=== PATIENT | female | born 1945 | race Caucasian/White ===

== ENCOUNTER 2021-04-22 15:47 | Inpatient (IN) | payer MEDICARE ==
[~2021-04-22] VITALS: Ht 162.6 cm; Wt 68.7 kg
[2021-04-22 19:10] LABS: BASOPHIL 0.2 % (0-2); EOSINOPHIL 0 % (0-7); HCT 40.7 % (37.0-47.0); HGB 13.8 g/dl (12.5-16.0); LYMPHOCYTE 18.2 % (15-48); MCH 28.7 pg (25.0-31.0); MCHC 33.9 g/dL (32.0-36.0); MCV 84.6 fL (78.0-100.0); MONOCYTE 7.1 % (0-12); NEUTROPHIL 73.7 % (41-80); NRBC 0; PLT 176 K/uL (150-400); RBC 4.81 M/uL (4.20-5.40); RDW 13.2 % (11.5-14.0); WBC 8.9 K/uL (4.0-10.5)
[2021-04-22 19:27] LABS: BUN/CREAT RATIO (CALC) 16.4 RATIO; CREATININE 1.77 mg/dL (0.51-0.95); POTASSIUM 4.3 mmol/L (3.5-5.1)
[2021-04-22] MEDS ORDERED: ALPHAGAN 020 DROPS/M OS (23:31)
[2021-04-22] MEDS ORDERED: ATROPINE SULFATE2 ML EYELF (23:31)
[2021-04-22] MEDS ORDERED: DORZOLAMIDE-TIM10 ML OS (23:32)
[2021-04-22] MEDS ORDERED: LASIX20 MG PO (23:33)
[2021-04-22] MEDS ORDERED: PRINIVIL20 MG PO (23:34)
[2021-04-22] MEDS ORDERED: MELOXICAM7.5 MG PO (23:35)
[2021-04-22] MEDS ORDERED: METFORMIN HCL500 MG PO (23:36)
[2021-04-22] MEDS ORDERED: TOPROL XL 25MG25 MG PO (23:36)
[2021-04-22] MEDS ORDERED: PREDNISOLO15 MG/5 ML OS (23:37)
[2021-04-22] MEDS ORDERED: RESTASIS1 EACH OS (23:38)
[2021-04-23 06:41] LABS: BASOPHIL 0.2 % (0-2); EOSINOPHIL 0 % (0-7); HCT 39.2 % (37.0-47.0); LYMPHOCYTE 13.1 % (15-48); MCH 28.3 pg (25.0-31.0); MCHC 33.2 g/dL (32.0-36.0); MCV 85.2 fL (78.0-100.0); MONOCYTE 2.1 % (0-12); NEUTROPHIL 83.2 % (41-80); NRBC 0; PLT 172 K/uL (150-400); RDW 13.2 % (11.5-14.0)
[2021-04-23 07:03] LABS: WBC 5.7 K/uL (4.0-10.5)
[2021-04-23 07:06] LABS: BUN 28 mg/dL (7-18); BUN/CREAT RATIO (CALC) 24.1 RATIO; C-REACTIVE PROTEIN >18.00 mg/dL (<=0.90); CHLORIDE 98 mmol/L (98-107); CO2 (BICARBONATE) 25 mmol/L (21-32); CREATININE 1.16 mg/dL (0.51-0.95); GLUCOSE 244 mg/dL (74-106); LDH 255 U/L (81-234); POTASSIUM 4.6 mmol/L (3.5-5.1)
[2021-04-24 06:15] LABS: BASOPHIL 0.2 % (0-2); EOSINOPHIL 0 % (0-7); HCT 36.4 % (37.0-47.0); HGB 12.4 g/dl (12.5-16.0); LYMPHOCYTE 13.8 % (15-48); MCH 28.8 pg (25.0-31.0); MCHC 34.1 g/dL (32.0-36.0); MCV 84.5 fL (78.0-100.0); MONOCYTE 7.1 % (0-12); MPV 11.4 fL (6.0-9.5); NEUTROPHIL 77.6 % (41-80); NRBC 0; PLT 190 K/uL (150-400); RBC 4.31 M/uL (4.20-5.40); RDW 13.2 % (11.5-14.0); WBC 9.2 K/uL (4.0-10.5)
[2021-04-24 07:15] LABS: CREATININE 1.01 mg/dL (0.51-0.95); POTASSIUM 4.5 mmol/L (3.5-5.1)
--- NOTE | 2021-04-24 16:35 | NUR ---
04/24 Ms. Deleon lives at home with her 19 y/o grandson. She does not drive. Her daughtre runs errands and provides transportation. [email or web address] Deleon does not use any DME. She will likely need 02 at discharge. Ms. Deleon chose [employer].
[2021-04-26] MEDS ORDERED: DECADRON6 MG PO (14:03)
[2021-04-26] MEDS ORDERED: VENTOLIN HFA IN18 GM INH (14:03)
== END 2021-04-26 17:09 | disposition home or self-care (01) | DRG 177 ==
LOC: FER 15:47 → FMS 21:36
PROVIDERS: Internal Medicine; Nurse Practitioner; ADMIT Internal Medicine
PROC: 8E0ZXY6 Isolation (ICD-10-PCS; 2021-04-22)
PROC: XW033E5 Introduction of Remdesivir Anti-infective into Peripheral Vein, Percutaneous Approach, New Technology Group 5 (ICD-10-PCS; principal; 2021-04-23)
DX: U07.1 COVID-19 (principal); J12.82 Pneumonia due to coronavirus disease 2019; J96.01 Acute respiratory failure with hypoxia; J18.9 Pneumonia, unspecified organism; J44.1 Chronic obstructive pulmonary disease with (acute) exacerbation; J44.0 Chronic obstructive pulmonary disease with (acute) lower respiratory infection; N17.9 Acute kidney failure, unspecified; Z66 Do not resuscitate; E86.0 Dehydration; I10 Essential (primary) hypertension; E11.9 Type 2 diabetes mellitus without complications; E78.5 Hyperlipidemia, unspecified; H40.9 Unspecified glaucoma; H54.62 Unqualified visual loss, left eye, normal vision right eye; F17.200 Nicotine dependence, unspecified, uncomplicated; Z99.81 Dependence on supplemental oxygen; Z82.49 Family history of ischemic heart disease and other diseases of the circulatory system; Z98.41 Cataract extraction status, right eye; Z90.710 Acquired absence of both cervix and uterus; Z79.84 Long term (current) use of oral hypoglycemic drugs; Z79.899 Other long term (current) drug therapy
CPT/HCPCS: 36415; 36600; 71045; 80048; 82728; 82803; 83615; 84145; 85025; 86140; 87040; 94010; 94640; 94760; 94762; 97116; 97162; 97166; 97530-GP; 97535; C9399; J0456; J1100; J1650; J7030; J7050; J8540; U0002